=== PATIENT | male | born 1960 | race Caucasian/White ===

== ENCOUNTER 2019-07-22 05:58 | Inpatient (IN) | payer MEDICARE ==
[~2019-07-22] VITALS: Ht 170.2 cm; Wt 131.0 kg
--- NOTE | 2019-07-22 06:34 | NUR ---
PCU DIRECT ADMIT PT ARRIVED TO PCU RM 09 @ 0099. PT REPORTED BEING NPO SINCE 1700 YESTERDAY AND C/O FEELING "JITTERY". PT CBG SPOT CHECKED W/ CBG OF 65. CALL TO MD APPIAH W/ JAIMEAY TO GIVE PT SMALL AMOUNT OF APPLE JUICE THEN BEGIN D5 1/2 NS GTT. PT TO THEN RESUME NPO STATUS FOR PROCEDURE. WILL CONTINUE TO MONITOR.
--- NOTE | 2019-07-22 07:09 | NUR ---
HC STAFF IN ROOM TO TAKE PT AT THIS TIME.
[2019-07-22] MEDS ORDERED: METO10 PO (10:02)
[2019-07-22] MEDS ORDERED: ONDA4 PO (10:03)
[2019-07-22] MEDS ORDERED: OXYC5 PO (10:03)
[2019-07-22] MEDS ORDERED: Fentanyl1 EACH TOP (10:04)
[2019-07-22] MEDS ORDERED: BIKTARVY 50-201 EACH PO (10:06)
[2019-07-22] MEDS ORDERED: OMEPRAZOLE20 MG PO (10:07)
[2019-07-22] MEDS ORDERED: VITAMIN D32000 UNI2 PO (10:08)
[2019-07-22] MEDS ORDERED: LISI20 PO (10:10)
[2019-07-22] MEDS ORDERED: PRAV20 PO (10:10)
[2019-07-22] MEDS ORDERED: INSULANPEN SC (10:11)
[2019-07-22] MEDS ORDERED: Humalog100 UNIT/1 SC (10:12)
[2019-07-22] MEDS ORDERED: SUMA25 PO (10:13)
[2019-07-22] MEDS ORDERED: CREON PO (10:15)
--- NOTE | 2019-07-22 11:26 | NUR ---
The pt was received from the heart [facility] just before 0900. He was lethargic, difficult to arouse, and hypotensive. Pupils were pinpoint, but reactive to light bilaterally. Dr. Garcia was called to report the pt's symptoms and new orders were received for a IV fluid bolus of 500cc. This was initiated, and the pt's blood pressure did improve, but only slightly. Currently his blood pressure is 89 systolic. The pt very quickly became arousable, answering questions appropriately, and verbal and non-verbal evidence of severe pain, for which he was given 25 mg of fentanyl, with relief only after 45 minutes to an hour. Biliary drain is in place, I am told sutured, and was draining red fluid, now also draining some clear yellowish fluid, in small amounts. NO swelling, hematoma, nor bleeding from other locations noted. At this time the pt appears to be sleeping. He is responsive to verbal stimuli, appropriate, and states that he is still having pain. Three attempts have been made in the past [address] Garcia as the admission orders are incomplete. Message was left on his cell phone, and overhead page was also made. I am told that he is in surgery.
--- NOTE | 2019-07-22 12:11 | NUR ---
Attempted to call Dr. Garcia regarding persistent hypotension, even following the IV bolus of 500 cc NS. The pt awakens easily to verbal stimuli, states tht he is in a lot of pain, that it hurts to breathe. Respirations are even and unlabored, and the pt is now lying down with HOB only slightly elevated, following 3 hours with HOB elevated greater than 45 degrees per written orders. spo2 is 98% on 1 l/min oxygen delivery. PT denies using oxygen at home. Blood pressure is currently [address] Garcia did not answer his phone. Message was left.
[2019-07-22] MEDS ORDERED: CREON DR 24,001 EACH PO (13:32)
--- NOTE | 2019-07-22 14:13 | NUR ---
Dr. Garcia here to see the patient. Blood pressure remains low, but the pt is asymptomatic while he is lying in bed. The pt feels well enough to eat lunch, so he is sitting up eating at this time. Verbal orders were received for his regular home medications. The pt was medicated for post op pain.
--- NOTE | 2019-07-22 15:36 | NUR ---
The pt appears to be resting comfortably. Eyes closed, respirations even and unlabored. Awakens easily to gentle verbal/tactile stimuli. Biliary drain draining yellow thick liquid, approx 450 cc so far total since arrival post procedure. Blood pressure remains low, fever has decreased since room was cooled and extra blankets were removed.
--- NOTE | 2019-07-22 17:45 | NUR ---
The pt is cheerful, talking and laughing with a female visitor at the bedside. Thept is sitting up in bed, eating dinner with a good appetite. Blood pressure remains between 85 and 90 systolic; the pt denies any symptoms of lightheadedness or dizzyness. Biliary drain is draining additional 300cc of yellow thick liquid.
--- NOTE | 2019-07-22 21:45 | NUR ---
PCU NIGHTSHIFT ASSUMED CARE OF PT APPROX. 1900. PT A&OX4. ASSESSMENT COMPLETED. VITAL SIGNS STABLE. PT REPORTS PAIN IS INCREASING AND REPORTS THIS TO BE CHRONIC JOINT PAIN. PRN MEDICATION GIVEN PER EMAR. PT HAS DRAIN IN PLACE AND SECRUED AT LEFT UPPER QUADRANT. DRAIN PATENT AND DRAINING. PT ABLE TO AMUBALTE TO BATHROOM TO URINATE AT START OF SHIFT. URINE WAS DARK IN COLOR BUT CLEAR. SKIN OVERALL JAUNDICE. PT BLODD PRESSURE IMPROVED FROM PREVIOUS BLOOD PRESSURES NOTED IN VITAL SIGNS. PT IN BED. DRAIN HANING TO ALLOW GRAVITY TO ASSIST WITH DRAINING. BED IN LOW POSITION, CALL LIGHT IN REACH AND PT DENIES ANY NEEDS. WILL CONTINUE TO MONIOR.
--- NOTE | 2019-07-23 05:55 | NUR ---
SHIFT SUMMARY PT PLEASANT, COOPERATIVE AND USES CALL LIGHT APPROPRIATELY. PT REMAINS A&OX4. ASSESSMENT FINDINGS REMAIN UNCHANGED, ALTHOUGH PT SLIGHTLY LESS JAUNDICED THAN START OF SHIFT. PT ABLE TO SLEEP MOST OF SHIFT. PT ABLE TO AMBUALTE TO BATHROOM AND URINATE NEEDED. PRN PAIN MEDICATION GIVEN PER EMAR NEEDED. DRAIN REMAISN IN PLACE, PATENT AND DRAINING. PT AWAKE AT THIS TIME. STATES FEELING GOOD. BED IN LOW POSITION, CALL LIGHT IN REACH AND PT DENIES ANY NEEDS. WILL CONTINUE TO MONITOR UNTIL HANDOFF TO DAYSHIFT RN.
--- NOTE | 2019-07-23 07:52 | NUR ---
The pt is sitting up in bed, cheerful, talking with his sister while eating breakfast. States his pain is tolerable and that he feels a lot better.
--- NOTE | 2019-07-23 09:13 | NUR ---
Call from Dr. Garcia to say that he is unable to discharge the pt himself without access to PK as he is in [place] at a conference. Each home medication was reviewed with the doctor, and orders received to continue all the home medications, except for Lisinopril, due to the pt's hypotension. Telephone discharge orders and instructions for follow up were received from Dr. Garcia. The pt's drain is currently draining yellow thick fluid, from the bag only. Insertion site shows no swelling, no redness, no drainage. The dressing is clean, dry and intact. The pt this morning is afebrile, and not as hypotensive as yesterday. He denies any needs at this time. States that he would like to go home.
--- NOTE | 2019-07-23 11:51 | NUR ---
Pt. is in bed resting reports doing well and may go home today , offered prayers and support.
== END 2019-07-23 12:02 | disposition home or self-care (01) | DRG 435 ==
LOC: MHTC 05:58 → PCU 06:05
PROVIDERS: ADMIT Radiology Diagnostic Radiology
PROC: 0F9930Z Drainage of Common Bile Duct with Drainage Device, Percutaneous Approach (ICD-10-PCS; principal; 2019-07-22)
PROC: BF101ZZ Fluoroscopy of Bile Ducts using Low Osmolar Contrast (ICD-10-PCS; 2019-07-22)
DX: C25.9 Malignant neoplasm of pancreas, unspecified (principal); K83.1 Obstruction of bile duct; C77.2 Secondary and unspecified malignant neoplasm of intra-abdominal lymph nodes; C78.7 Secondary malignant neoplasm of liver and intrahepatic bile duct; B20 Human immunodeficiency virus [HIV] disease; E10.9 Type 1 diabetes mellitus without complications; Z96.643 Presence of artificial hip joint, bilateral; F17.210 Nicotine dependence, cigarettes, uncomplicated; Z79.891 Long term (current) use of opiate analgesic
CPT/HCPCS: 36415; 47540; 80048; 82947; 85025; 85610; 99152; 99153; C1729; C1769; C1887; J0690; J1200; J1815; J2250; J3010; J7030; J7040; J7042; Q9967

== ENCOUNTER 2019-08-02 18:37 | Inpatient (IN) | payer MEDICARE, OTHER ==
[~2019-08-02] VITALS: Ht 170.2 cm; Wt 51.3 kg
[~2019-08-02 18:37] MED LIST: BIKTARVY 50-201 EACH PO; CREON DR 24,001 EACH PO; CREON PO; Fentanyl1 EACH TOP; Humalog100 UNIT/1 SC; INSULANPEN SC; LISI20 PO; METO10 PO; OMEPRAZOLE20 MG PO; ONDA4 PO; OXYC5 PO; PRAV20 PO; SUMA25 PO; VITAMIN D32000 UNI2 PO
[2019-08-02 19:33] LABS: BASOPHILS ABSOLUTE AUTO 0.01 K/mm3 (0.00-0.23); BASOPHILS PERCENT AUTO 0 % (0-2); EOSINOPHILS PERCENT AUTO 0 % (0-6); Hematocrit 31.1 % (37.0-53.0); Hemoglobin 10.6 g/dL (13.5-17.5); Mean Corpuscular HGB 35.6 pg (26.0-34.0); Mean Corpuscular HGB Conc 34.1 g/dL (31.5-36.5); Mean Corpuscular Volume 104 fL (80-100); Mean Platelet Volume 11.7 fL (9.1-12.4); Platelet Count 187 K/mm3 (150-400); RDW Coefficient Variation 15.9 % (11.7-14.2); RDW Standard Deviation 60.8 fL (35.1-46.3); Red Blood Cell Count 2.98 M/mm3 (4.30-5.90); White Blood Cell Count 8.45 K/mm3 (4.00-11.30)
[2019-08-02 19:35] LABS: IMMATURE GRAN ABSOLUTE AUTO 0.07 K/mm3 (0.00-0.10); IMMATURE GRAN PERCENT AUTO 1 % (0-1); LYMPHOCYTES ABSOLUTE AUTO 0.14 K/mm3 (0.84-5.20); LYMPHOCYTES PERCENT AUTO 2 % (21-46); MONOCYTES ABSOLUTE AUTO 0.07 K/mm3 (0.16-1.47); MONOCYTES PERCENT AUTO 1 % (4-13); NEUTROPHILS ABSOLUTE AUTO 8.16 K/mm3 (1.96-9.15); NEUTROPHILS PERCENT AUTO 97 % (41-73)
[2019-08-02 19:46] LABS: International Normalized Ratio 1.14; Prothrombin Time Results 11.9 Sec (9.7-11.5)
[2019-08-02 19:53] LABS: Alanine Aminotransfer (ALT/SGP 71 U/L (12-78); Albumin, Blood 2.1 g/dL (3.4-5.0); Albumin/Globulin Ratio 0.5 (0.8-1.8); Alk Phos 505 U/L (50-136); Anion Gap 8 mmol/L (6-16); Aspartate Aminotrans (AST/SGOT 48 U/L (12-37); Bilirubin, Total 9.2 mg/dL (0.1-1.0); Blood Urea Nitrogen 40 mg/dL (8-24); Bun/Creatinine Ratio 33.6 (12.0-20.0); CO2, Blood 25 mmol/L (21-32); Calcium, Blood 8.6 mg/dL (8.5-10.1); Chloride, Blood 88 mmol/L (98-108); Creatinine, Blood 1.19 mg/dL (0.60-1.20); Globulin, Blood 4.1 g/dL (2.2-4.0); Glomerular Filtration Rate >60 (60-); Glucose, Blood 424 mg/dL (70-99); Potassium, Blood 4.9 mmol/L (3.5-5.5); Sodium, Blood 121 mmol/L (136-145); Total Protein, Blood 6.2 g/dL (6.4-8.2)
[2019-08-02 21:03] LABS: Source, Urine Catheter
[2019-08-02 21:06] LABS: Blood, Urine 1+ (Neg); Glucose Qualitative, Urine 4+ (Neg); Ketones, Urine 1+ (Neg); Leukocyte Esterase, Urine 1+ (Neg); Nitrite, Urine Pos (Neg); Protein, Urine 2+ (Neg); Urobilinogen, Urine 2+ (Normal)
[2019-08-02 21:07] LABS: Bilirubin, Urine 2+ (Neg)
[2019-08-02 21:13] LABS: Appearance, Urine Hazy (Clear); Color, Urine Amber (P-Yellow)
[2019-08-02 21:16] LABS: Bacteria Mod /hpf; Granular Casts Rare /lpf (0); Red Blood Cells, Urine Rare /hpf (0-2); Squamous Epithelial Cells Few /hpf (Few); White Blood Cells, Urine 0-2 /hpf (0-5)
[2019-08-02 21:17] LABS: Mucus Light (0-Heavy)
[2019-08-03 00:50] LABS: Source, Urine Clean Catch
[2019-08-03 00:52] LABS: Appearance, Urine Clear (Clear); Blood, Urine 1+ (Neg); Color, Urine Amber (P-Yellow); Glucose Qualitative, Urine 2+ (Neg); Ketones, Urine Neg (Neg); Leukocyte Esterase, Urine 1+ (Neg); Nitrite, Urine Neg (Neg); Protein, Urine 2+ (Neg); Urobilinogen, Urine 1+ (Normal); pH, Urine 6.5 (5.0-8.0)
--- NOTE | 2019-08-03 00:52 | NUR ---
PATIENT IS A NEW ADMIT FROM THE ED. THREE PERSON TRANSFER FROM [facility] TO BED. AXOX 3. PATIENT REPORTS HE IS BEDREST AT THIS TIME AND USES CANE AT HOME. PATIENT ORIENTED TO ROOM AND CALL LIGHT SYSTEM. ALBULMIN INFUSING ON ADMIT. PATIENT REPORTS MEDIPORT RU CHEST AND GLUCOSE READING DEVICE IN LEFT TRICEP. PATIENT MANAGES LIVER DRAINING DEVICE. CALL LIGHT IN REACH.
--- NOTE | 2019-08-03 00:55 | NUR ---
STARTED NS AND INFUSING X 1.5 LITERS. IV ABXS INFUSING. CBG 185 AND LANTUS GIVEN PER EMAR. URINE SAMPLE AND RESPIRATORY SAMPLE COLLECTED AND SENT TO LAB. PATIENT COOPERATIVE WITH CARE. CALL LIGHT IN REACH.
[2019-08-03 00:58] LABS: Bacteria Few /hpf; Bilirubin, Urine 2+ (Neg); Red Blood Cells, Urine 0-2 /hpf (0-2); Squamous Epithelial Cells Not Seen /hpf (Few); White Blood Cells, Urine 0-2 /hpf (0-5)
[2019-08-03 02:02] LABS: Adenovirus Not Detected (NOT DETECT); Bordetella pertussis Not Detected (NOT DETECT); Chlamydophila pneumoniae Not Detected (NOT DETECT); Coronavirus 229E Not Detected (NOT DETECT); Coronavirus HKU1 Not Detected (NOT DETECT); Coronavirus NL63 Not Detected (NOT DETECT); Coronavirus OC43 Not Detected (NOT DETECT); Human Metapneumovirus Not Detected (NOT DETECT); Human Rhinovirus/Enterovirus Not Detected (NOT DETECT); Influenza A Not Detected (NOT DETECT); Influenza A/2009-H1 Not Detected (NOT DETECT); Influenza A/H1 Not Detected (NOT DETECT); Influenza A/H3 Not Detected (NOT DETECT); Influenza B Not Detected (NOT DETECT); Mycoplasma pneumoniae Not Detected (NOT DETECT); Parainfluenza Virus 1 Not Detected (NOT DETECT); Parainfluenza Virus 2 Not Detected (NOT DETECT); Parainfluenza Virus 3 Not Detected (NOT DETECT); Parainfluenza Virus 4 Not Detected (NOT DETECT); Respiratory Syncytial Virus Not Detected (NOT DETECT)
--- NOTE | 2019-08-03 03:39 | NUR ---
SHIFT SUMMARY PATIENT HAD NO ACUTE CHANGES OBSERVED THIS SHIFT. NEUTROPENIC PRECAUTIONS. HX OF PANCREATIC, PROSTATE, AND LIVER CANCER. AXOX 3 AND BEDREST AT THIS TIME PER PATIENT WITH INCREASED WEAKNESS LAST FEW DAYS. MEDIPORT RU CHEST. GLUCOSE READING DEVICE IN LEFT TRICEP. SELF MANAGES BILIARY DRAIN COLLECTION BAG. CBG 183. PIV REMAINS INTACT. NS INFUSING X 1.5 LITERS. IV ABS INFUSED. VSS/AFEBRILE. REPORTED ABDOMEN/BACK PAIN AND IV FENTANYL 50 MCG GIVEN PER EMAR. DENIES SOB AND N/V. LACTIC ACID REDUCED FROM 3.4 TO 2.5. URINE SAMPLE AND RESPIRATORY PANEL COLLECTED AND SENT TO LAB. [facility] REPORTS NSR 82. CALL LIGHT IN REACH. BED IN LOWEST POSITION. WILL CONTINUE TO MONITOR UNTIL DAY SHIFT NURSE ASSUMES CARE.
[2019-08-03 04:43] LABS: Hematocrit 25.9 % (37.0-53.0); Hemoglobin 8.8 g/dL (13.5-17.5); Mean Corpuscular HGB 35.8 pg (26.0-34.0); Mean Corpuscular Volume 105 fL (80-100); Platelet Count 154 K/mm3 (150-400); RDW Coefficient Variation 15.9 % (11.7-14.2); RDW Standard Deviation 61.6 fL (35.1-46.3); Red Blood Cell Count 2.46 M/mm3 (4.30-5.90); White Blood Cell Count 7.35 K/mm3 (4.00-11.30)
[2019-08-03 05:11] LABS: Alanine Aminotransfer (ALT/SGP 55 U/L (12-78); Albumin, Blood 2.1 g/dL (3.4-5.0); Albumin/Globulin Ratio 0.6 (0.8-1.8); Alk Phos 390 U/L (50-136); Anion Gap 9 mmol/L (6-16); Aspartate Aminotrans (AST/SGOT 34 U/L (12-37); Bilirubin, Total 7.8 mg/dL (0.1-1.0); Blood Urea Nitrogen 33 mg/dL (8-24); Bun/Creatinine Ratio 35.8 (12.0-20.0); CO2, Blood 22 mmol/L (21-32); Calcium, Blood 8.1 mg/dL (8.5-10.1); Chloride, Blood 92 mmol/L (98-108); Creatinine, Blood 0.92 mg/dL (0.60-1.20); Globulin, Blood 3.6 g/dL (2.2-4.0); Glomerular Filtration Rate >60 (60-); Glucose, Blood 211 mg/dL (70-99); Potassium, Blood 5.1 mmol/L (3.5-5.5); Sodium, Blood 123 mmol/L (136-145); Total Protein, Blood 5.7 g/dL (6.4-8.2)
--- NOTE | 2019-08-03 11:01 | NUR ---
called dr lucas he is aware of the possitive blood culture results
--- NOTE | 2019-08-03 19:46 | NUR ---
SHIFT SUMLUBBOCK- PT HAS BEEN AMBULATING TO THE BATHROOM T/O THE SHIFT. STILL RECIEVING IV FENTANYL FOR BREAKTHROUGH PAIN. PT HAS POSSITIVE BLOOD CULTURES, DR IRVIN IS AWARE, ABX THERAPY CHANGED TODAY D/T THESE RESULTS. PT ALERT AND ORIENTED 1PA TO THE BATHROOM WHEN NEEDED, PT CAN USE THE URINAL AT THE BEDSIDE. CALL LIGHT IN REACH BEDSIDE REPORT COMPLETE. PT HOME MED CODDED FOR ADMINISTRATION BY PHARMACY LOCKED IN THE PT DRAWER. PT STATED HE TAKES THE MED AT NIGHT IT UPSETS HIS STOMACH. ADMIN TIME SCHEDULED FOR EVENING.
--- NOTE | 2019-08-04 03:27 | NUR ---
SHIFT SUMMARY PATIENT HAD NO ACUTE CHANGES OBSERVED. AXOX 3 AND ONE ASSIST TO BR. REPORTED BACK/ABDOMEN PAIN AND RECEIVED IV FENTANYL 50 MCG PER EMAR. PIV REMAINS INTACT. TOURIST GUIDE REPORTS NSR 80. NS INFUSING AT 100 mL/HR. USES URINAL AT BEDSIDE. BILIARY DRAIN COLLECTION BAG SELF CARE. CBG 145. VSS/AFEBRILE. IV ABXS INFUSED. MEDIPORT RU CHEST. CALL LIGHT IN REACH. BED IN LOWEST POSITION. WILL CONTINUE TO MONITOR UNTIL DAY SHIFT NURSE ASSUMES CARE.
--- NOTE | 2019-08-04 07:45 | NUR ---
BORROWED DROP OF BLOOD FROM AUTOMOBILE BUMPER STRAIGHTENER WHO HAPPENED TO BE DRAWING PATIENT'S BLOOD AT THE SAME TIME. USED DROP OF VENOUS BLOOD FOR CHEM BG AND IT WAS. GAVE PATIENT MEDIUM CUP OF OJ AND INFORMED RN. PATIENT STATED FEELING A LITTLE DIZZY BUT WAS OTHERWISE WITHOUT S/SX. PATIENT DRINKING OJ WITHOUT ISSUE.
[2019-08-04 07:47] LABS: Hematocrit 23.5 % (37.0-53.0); Hemoglobin 8.2 g/dL (13.5-17.5); Mean Corpuscular HGB 36.1 pg (26.0-34.0); Mean Corpuscular HGB Conc 34.9 g/dL (31.5-36.5); Mean Corpuscular Volume 104 fL (80-100); Mean Platelet Volume 12.3 fL (9.1-12.4); Platelet Count 110 K/mm3 (150-400); RDW Coefficient Variation 16.1 % (11.7-14.2); RDW Standard Deviation 60.4 fL (35.1-46.3); Red Blood Cell Count 2.27 M/mm3 (4.30-5.90); White Blood Cell Count 3.04 K/mm3 (4.00-11.30)
[2019-08-04 08:12] LABS: BASOPHILS PERCENT MAN 0 % (0-2); EOSINOPHILS PERCENT MAN 0 % (0-6); LYMPHOCYTES ABSOLUTE MAN 0.42 K/mm3 (0.84-5.20); LYMPHOCYTES PERCENT MAN 14 % (21-46); MONOCYTES ABSOLUTE MAN 0.09 K/mm3 (0.16-1.47); MONOCYTES PERCENT MAN 3 % (4-13); MYELOCYTE ABSOLUTE MAN 0.03 K/mm3 (0.00-0.00); MYELOCYTE PERCENT MAN 1 % (0-0); NEUTROPHILS ABSOLUTE MAN 2.49 K/mm3 (1.96-9.15); SEG NEUTROPHILS PERCENT MAN 82 % (41-73); TOTAL CELLS COUNTED 100
[2019-08-04 08:39] LABS: Alanine Aminotransfer (ALT/SGP 46 U/L (12-78); Albumin/Globulin Ratio 0.6 (0.8-1.8); Alk Phos 345 U/L (50-136); Anion Gap 6 mmol/L (6-16); Aspartate Aminotrans (AST/SGOT 42 U/L (12-37); Bilirubin, Total 6.2 mg/dL (0.1-1.0); Blood Urea Nitrogen 20 mg/dL (8-24); Bun/Creatinine Ratio 22.8 (12.0-20.0); CO2, Blood 26 mmol/L (21-32); Calcium, Blood 7.7 mg/dL (8.5-10.1); Chloride, Blood 96 mmol/L (98-108); Creatinine, Blood 0.88 mg/dL (0.60-1.20); Globulin, Blood 3.5 g/dL (2.2-4.0); Glomerular Filtration Rate >60 (60-); Potassium, Blood 4.2 mmol/L (3.5-5.5); Sodium, Blood 128 mmol/L (136-145); Total Protein, Blood 5.5 g/dL (6.4-8.2)
[2019-08-04 08:41] LABS: Glucose, Blood 49 mg/dL (70-99)
--- NOTE | 2019-08-04 19:12 | NUR ---
SHIFT SUMAMRY: NO ACUTE CHANGES TO REPORT THIS SHIFT. PT A&O; CALM AND COOPERATIVE WITH CARE. DR BARRERA (ONCOLOGY) FOLLOWING R/T CA OF PROSTATE, LIVER & PANCREAS. MEDICATED FOR PAIN PER EMAR; FENTANYL TOP IN PLACE. TELE IN PLACE; NSR @ 79 PER FORMS EXAMINER DURING MORNING ASSESSMENT. IV FLUIDS & ABX CONTINUING. REPORT GIVEN TO ONCOMING RN.
--- NOTE | 2019-08-05 05:09 | NUR ---
SHIFT SUMMARY: LETTY IS A 58 Y/O MALE, INDEPENDENT TO THE BSC, USE OF URINAL. BILARY DRAIN REMAINED INTAKE AND DRAINING. TELE REPORTS NSR RUNNING 70-80'S. REPORTED ABDOMINAL AND BACK PAIN, WHO RECEIVED FENTANYL 50MCQ PER EMAR EVERY 4 HOURS PER HIS REQUEST. THIS WOULD RELEIVE HIS PAIN TO TOLERABLE LEVEL OF 6/10. CBG WAS 77, NO LANTUS WAS GIVEN. VSS STABLE. IV INFUSING WITH NO PROBLEMS, MEDS ADMINSITERED PER EMAR. CALL LIGHT REMAINED WITH IN REACH, AND USED APPROPRIATLY. NO OTHER ACUTE CHANGES OCCURED. WILL REPORT TO DAY SHIFT RN.
[2019-08-05 12:55] LABS: Hematocrit 22.4 % (37.0-53.0); Hemoglobin 7.7 g/dL (13.5-17.5); Mean Corpuscular HGB 36.2 pg (26.0-34.0); Mean Corpuscular HGB Conc 34.4 g/dL (31.5-36.5); Mean Corpuscular Volume 105 fL (80-100); Mean Platelet Volume 12.8 fL (9.1-12.4); Platelet Count 138 K/mm3 (150-400); RDW Coefficient Variation 16.2 % (11.7-14.2); RDW Standard Deviation 61.8 fL (35.1-46.3); Red Blood Cell Count 2.13 M/mm3 (4.30-5.90); White Blood Cell Count 3.95 K/mm3 (4.00-11.30)
[2019-08-05 13:10] LABS: Alanine Aminotransfer (ALT/SGP 30 U/L (12-78); Albumin, Blood 1.7 g/dL (3.4-5.0); Albumin/Globulin Ratio 0.6 (0.8-1.8); Alk Phos 280 U/L (50-136); Anion Gap 6 mmol/L (6-16); Aspartate Aminotrans (AST/SGOT 23 U/L (12-37); Bilirubin, Total 5.4 mg/dL (0.1-1.0); Blood Urea Nitrogen 10 mg/dL (8-24); Bun/Creatinine Ratio 13.4 (12.0-20.0); CO2, Blood 23 mmol/L (21-32); Calcium, Blood 7.6 mg/dL (8.5-10.1); Chloride, Blood 99 mmol/L (98-108); Creatinine, Blood 0.75 mg/dL (0.60-1.20); Glomerular Filtration Rate >60 (60-); Glucose, Blood 218 mg/dL (70-99); Potassium, Blood 3.9 mmol/L (3.5-5.5); Sodium, Blood 128 mmol/L (136-145); Total Protein, Blood 4.7 g/dL (6.4-8.2); Vancomycin, Trough 3.1 ug/mL (5.0-10.0)
[2019-08-05 13:26] LABS: BAND PERCENT MAN 5 % (0-8); BASOPHILS ABSOLUTE MAN 0.03 K/mm3 (0.00-0.23); BASOPHILS PERCENT MAN 1 % (0-2); EOSINOPHILS PERCENT MAN 0 % (0-6); LYMPHOCYTES ABSOLUTE MAN 0.39 K/mm3 (0.84-5.20); LYMPHOCYTES PERCENT MAN 10 % (21-46); MONOCYTES ABSOLUTE MAN 0.11 K/mm3 (0.16-1.47); MONOCYTES PERCENT MAN 3 % (4-13); NEUTROPHILS ABSOLUTE MAN 3.39 K/mm3 (1.96-9.15); SEG NEUTROPHILS PERCENT MAN 81 % (41-73); TOTAL CELLS COUNTED 100
--- NOTE | 2019-08-05 19:15 | NUR ---
PT. FEELING MUCH BETTER THIS AFTEEERNOON AND WAS ABLE TO EAT MORE OF HIS DINNER. NO OTHER NOTEABLE CHANGES THIS SHIFT. PT. GETTING NEW ANTIBIOTICS AND PO PAIN MEDS ADDED WHICH SEEMS TO COVER HIA PAIN BETTER.
[2019-08-06 05:03] LABS: BASOPHILS ABSOLUTE AUTO 0.02 K/mm3 (0.00-0.23); BASOPHILS PERCENT AUTO 1 % (0-2); Hematocrit 23.9 % (37.0-53.0); Hemoglobin 8.1 g/dL (13.5-17.5); LYMPHOCYTES ABSOLUTE AUTO 0.23 K/mm3 (0.84-5.20); LYMPHOCYTES PERCENT AUTO 7 % (21-46); MONOCYTES ABSOLUTE AUTO 0.12 K/mm3 (0.16-1.47); MONOCYTES PERCENT AUTO 4 % (4-13); Mean Corpuscular HGB 35.5 pg (26.0-34.0); Mean Corpuscular HGB Conc 33.9 g/dL (31.5-36.5); Mean Corpuscular Volume 105 fL (80-100); Mean Platelet Volume 12.6 fL (9.1-12.4); Platelet Count 151 K/mm3 (150-400); RDW Coefficient Variation 16.4 % (11.7-14.2); RDW Standard Deviation 62.7 fL (35.1-46.3); Red Blood Cell Count 2.28 M/mm3 (4.30-5.90); White Blood Cell Count 3.22 K/mm3 (4.00-11.30)
[2019-08-06 05:06] LABS: EOSINOPHILS ABSOLUTE AUTO 0.02 K/mm3 (0.00-0.68); EOSINOPHILS PERCENT AUTO 1 % (0-6); IMMATURE GRAN ABSOLUTE AUTO 0.03 K/mm3 (0.00-0.10); IMMATURE GRAN PERCENT AUTO 1 % (0-1); NEUTROPHILS PERCENT AUTO 87 % (41-73)
[2019-08-06 05:24] LABS: Alanine Aminotransfer (ALT/SGP 29 U/L (12-78); Albumin, Blood 1.6 g/dL (3.4-5.0); Albumin/Globulin Ratio 0.5 (0.8-1.8); Alk Phos 318 U/L (50-136); Anion Gap 6 mmol/L (6-16); Aspartate Aminotrans (AST/SGOT 35 U/L (12-37); Blood Urea Nitrogen 8 mg/dL (8-24); Bun/Creatinine Ratio 10.3 (12.0-20.0); CO2, Blood 25 mmol/L (21-32); Calcium, Blood 7.6 mg/dL (8.5-10.1); Chloride, Blood 102 mmol/L (98-108); Creatinine, Blood 0.78 mg/dL (0.60-1.20); Globulin, Blood 3.2 g/dL (2.2-4.0); Glomerular Filtration Rate >60 (60-); Glucose, Blood 99 mg/dL (70-99); Potassium, Blood 4.3 mmol/L (3.5-5.5); Sodium, Blood 133 mmol/L (136-145); Total Protein, Blood 4.8 g/dL (6.4-8.2)
--- NOTE | 2019-08-06 05:54 | NUR ---
SHIFT SUMMARY: 58 Y/O MALE WHO IS INDEPENDENT TO THE BSC AND URINAL. BILARY DRAIN REMAINED INTAKE AND PATENT. TELEMETRY IN PLACE. ABDOMINAL AND BACK PAIN PERSISTED TONIGHT, RECEIVING FENTANYL 50MCQ PER EMAR AND OXYCODONE 10MG WELL. THIS HAS RELEIVED HIS PAIN DOWN TO 5 THE MOST BUT STATES HE IS MORE COMFORTABLE THEN HE HAS BEEN. VS HAVE REMAINED STABLE. IV INFUSED WITH NO PROBLEMS. MEDS WERE GIVEN PER EMAR. CALL LIGHT REMAINED IN REACH AND USED APPROPRIATLY. N OTHER ACUTE CHANGES OCCURED. WILL REPORT TO DAY SHIFT RN.
--- NOTE | 2019-08-06 18:00 | NUR ---
PT. LYING QUIETLY WATCHING TV. PT. TEMP UP TO 100.7 TODAY AND BLOOD SUGAR AT 1100 WAS AT 41, JUICE AND PUDDING GIVE THEN BLOOD SUGAR INCREASED TO 70. NO OTHER NOTEABLE CHANGES THIS SHIFT EXCEPT FOR URINE CULTURED OUT AT [facility], SO PT. PLACED IN ISOLATION.
[2019-08-07 06:15] LABS: Hematocrit 21.7 % (37.0-53.0); Hemoglobin 7.3 g/dL (13.5-17.5); Mean Corpuscular HGB 34.8 pg (26.0-34.0); Mean Corpuscular HGB Conc 33.6 g/dL (31.5-36.5); Mean Corpuscular Volume 103 fL (80-100); Mean Platelet Volume 11.7 fL (9.1-12.4); NRBC ABSOLUTE 0.02 K/mm3 (0.00-0.02); NRBC Auto 1.7 /100 WBC (0.0-0.2); Platelet Count 177 K/mm3 (150-400); RDW Coefficient Variation 15.9 % (11.7-14.2); RDW Standard Deviation 60.3 fL (35.1-46.3)
[2019-08-07 06:40] LABS: Alanine Aminotransfer (ALT/SGP 26 U/L (12-78); Albumin, Blood 1.6 g/dL (3.4-5.0); Albumin/Globulin Ratio 0.5 (0.8-1.8); Alk Phos 283 U/L (50-136); Anion Gap 8 mmol/L (6-16); Aspartate Aminotrans (AST/SGOT 21 U/L (12-37); Bilirubin, Total 4.2 mg/dL (0.1-1.0); Blood Urea Nitrogen 7 mg/dL (8-24); Bun/Creatinine Ratio 10.2 (12.0-20.0); CO2, Blood 24 mmol/L (21-32); Calcium, Blood 7.5 mg/dL (8.5-10.1); Chloride, Blood 103 mmol/L (98-108); Creatinine, Blood 0.69 mg/dL (0.60-1.20); Globulin, Blood 3.1 g/dL (2.2-4.0); Glomerular Filtration Rate >60 (60-); Glucose, Blood 60 mg/dL (70-99); Potassium, Blood 3.2 mmol/L (3.5-5.5); Sodium, Blood 135 mmol/L (136-145); Total Protein, Blood 4.7 g/dL (6.4-8.2)
[2019-08-07 06:41] LABS: BAND PERCENT MAN 6 % (0-8); BASOPHILS ABSOLUTE MAN 0.02 K/mm3 (0.00-0.23); BASOPHILS PERCENT MAN 2 % (0-2); EOSINOPHILS ABSOLUTE MAN 0.01 K/mm3 (0.00-0.68); EOSINOPHILS PERCENT MAN 1 % (0-6); LYMPHOCYTES ABSOLUTE MAN 0.32 K/mm3 (0.84-5.20); LYMPHOCYTES PERCENT MAN 27 % (21-46); MONOCYTES ABSOLUTE MAN 0.12 K/mm3 (0.16-1.47); MONOCYTES PERCENT MAN 10 % (4-13); MYELOCYTE ABSOLUTE MAN 0.01 K/mm3 (0.00-0.00); MYELOCYTE PERCENT MAN 1 % (0-0); SEG NEUTROPHILS PERCENT MAN 53 % (41-73); TOTAL CELLS COUNTED 100
--- NOTE | 2019-08-07 07:34 | NUR ---
SHIFT SUMMARY: 58 Y/O MALE PLEASANT AND COOPERATIVE. WHO SLEPT MOST OF THE NIGHT, EXCEPT WHEN HIS BLOOD SUGARS CONTINUE TO DROP. HE REPORTED TO HAVE DRY MOUTH AND BLOOD SUGAR CHECK WAS 47, THEREFORE GAVE HIM SOME OJ AND CHEESE, AND YOGURT, RECHECK WAS 68 AND COMING UP. PAIN WAS MANAGED WITH OXYCODONE AND FENTANYL. MEDIPORT WAS ACCESSED AFTER IV INFRITRATED IN THE RIGHT UPPER ARM. FLUIDS INFUSED WITH NO PROBLEMS MEDS WERE GIVEN PER EMAR. TEMP REMAINED IN THE 100.4. CALL LIGHT REMAINED IN REACH AND USED APPROPRIATLY. REPORT WAS GIVEN TO DAY SHIFT RN.
--- NOTE | 2019-08-07 13:35 | NUR ---
Pt .is in bed resting, reports doing well offered prayer and support.
--- NOTE | 2019-08-07 19:35 | NUR ---
PT. LYING QUIETLY, 2 UPRBC'S GIVEN TODAY, DR. MCKEON CAME TO SEE PT. LANTUS HAS BEEN DISCONTINUED R/T LOW BLOOD SUGARS, HAS NOT NEEDED INSULIN TODAY. STOOL SENT FOR C-DIFF PER DR. SMITH. PT. HAS BEEN RUNNING FEVERS TODAY IN THE 100'S AND 101'S. NO OTHER CHANGES THIS SHIFT.
[2019-08-08 05:07] LABS: BASOPHILS ABSOLUTE AUTO 0.01 K/mm3 (0.00-0.23); BASOPHILS PERCENT AUTO 1 % (0-2); Hematocrit 29.2 % (37.0-53.0); Hemoglobin 10.1 g/dL (13.5-17.5); Mean Corpuscular HGB 33.9 pg (26.0-34.0); Mean Corpuscular HGB Conc 34.6 g/dL (31.5-36.5); Mean Platelet Volume 11.8 fL (9.1-12.4); Platelet Count 191 K/mm3 (150-400); RDW Coefficient Variation 17.7 % (11.7-14.2); RDW Standard Deviation 63.8 fL (35.1-46.3); Red Blood Cell Count 2.98 M/mm3 (4.30-5.90); White Blood Cell Count 1.24 K/mm3 (4.00-11.30)
[2019-08-08 05:15] LABS: Alanine Aminotransfer (ALT/SGP 23 U/L (12-78); Albumin, Blood 1.6 g/dL (3.4-5.0); Albumin/Globulin Ratio 0.5 (0.8-1.8); Alk Phos 260 U/L (50-136); Anion Gap 8 mmol/L (6-16); Aspartate Aminotrans (AST/SGOT 23 U/L (12-37); Bilirubin, Total 5.8 mg/dL (0.1-1.0); Blood Urea Nitrogen 8 mg/dL (8-24); Bun/Creatinine Ratio 11.3 (12.0-20.0); CO2, Blood 24 mmol/L (21-32); Calcium, Blood 7.5 mg/dL (8.5-10.1); Chloride, Blood 101 mmol/L (98-108); Creatinine, Blood 0.71 mg/dL (0.60-1.20); Globulin, Blood 3.1 g/dL (2.2-4.0); Glomerular Filtration Rate >60 (60-); Glucose, Blood 327 mg/dL (70-99); Sodium, Blood 133 mmol/L (136-145); Total Protein, Blood 4.7 g/dL (6.4-8.2)
[2019-08-08 05:29] LABS: EOSINOPHILS ABSOLUTE AUTO 0.02 K/mm3 (0.00-0.68); EOSINOPHILS PERCENT AUTO 2 % (0-6); IMMATURE GRAN ABSOLUTE AUTO 0.01 K/mm3 (0.00-0.10); IMMATURE GRAN PERCENT AUTO 1 % (0-1); LYMPHOCYTES ABSOLUTE AUTO 0.27 K/mm3 (0.84-5.20); LYMPHOCYTES PERCENT AUTO 22 % (21-46); MONOCYTES ABSOLUTE AUTO 0.39 K/mm3 (0.16-1.47); MONOCYTES PERCENT AUTO 32 % (4-13); Mean Corpuscular Volume 98 fL (80-100); NEUTROPHILS ABSOLUTE AUTO 0.54 K/mm3 (1.96-9.15); NEUTROPHILS PERCENT AUTO 44 % (41-73)
--- NOTE | 2019-08-08 06:22 | NUR ---
READING INTERVENTION TEACHER SUMMARY PT AAOX4 AND INDEPENDENT TO BSC. TREATED FOR PAIN T/O NIGHT PER EMAR. PT BILIARY DRAIN NOTED TO HAVE HEAVY LEAKAGE AROUND DRESSING. SPOKE WITH DR APPIAH ON THE PHONE REGARDING LEAKING DRAIN. PER DR APPIAH, FLUSH DRAIN W/ 5 ML NS AND CHANGE DRESSING. ATTEMPTED TO FLUSH DRAIN, HOWEVER NS WOULD LEAK OUT OF EDGES OF DRESSING. DRESSING CHANGED AND REINFORCED, HOWEVER BILE STILL NOTED IN GAUZE BUT NOT LEAKING OUTSIDE OF DRESSING. VSS, WILL CONTINUE TO MONITOR.
--- NOTE | 2019-08-08 08:22 | NUR ---
MESSAGE LEFT WITH DR. NICHOLE MESSAGE LEFT WITH DR. NICHOLE TO CONTACT THIS RN ABOUT CLEARANCE FROM GI OR NOT. WILL CONTINUE TO MONITOR.
--- NOTE | 2019-08-08 18:19 | NUR ---
SHIFT SUMMARY SEE EMAR FOR PAIN MED ADMINISTRATION. PT BILIARY DRAIN CONTINUES TO SEEP FLUID. ORDER OBTAINED FROM DR. SHANNON TO CHANGE DRESSING QSHIFT PRN. PT REQUESTED TO WAIT TO CHANGE UNTIL AFTER DINNER. PT HAS SLIGHT TEMP THIS THIS AFTERNOON. PT TREATED WITH TYLENOL & EXTRA BLANKS REMOVED. NO OTHER CHANGES IN ASSESSMENT AT THIS TIME. VSS. WILL CONTINUE TO MONITOR UNTIL TURNOVER IS COMPLETE.
--- NOTE | 2019-08-08 18:23 | NUR ---
PT REFUSED BLADDER SCAN THIS SHIFT. WILL RELAY TO NEXT SHIFT TO OBTAIN.
[2019-08-09 05:11] LABS: Hematocrit 29.5 % (37.0-53.0); Hemoglobin 10.1 g/dL (13.5-17.5); Mean Corpuscular HGB 33.3 pg (26.0-34.0); Mean Corpuscular HGB Conc 34.2 g/dL (31.5-36.5); Mean Corpuscular Volume 97 fL (80-100); NRBC ABSOLUTE 0.02 K/mm3 (0.00-0.02); NRBC Auto 0.5 /100 WBC (0.0-0.2); Platelet Count 296 K/mm3 (150-400); RDW Coefficient Variation 17.2 % (11.7-14.2); Red Blood Cell Count 3.03 M/mm3 (4.30-5.90); White Blood Cell Count 3.65 K/mm3 (4.00-11.30)
[2019-08-09 05:41] LABS: Alanine Aminotransfer (ALT/SGP 28 U/L (12-78); Albumin, Blood 1.6 g/dL (3.4-5.0); Albumin/Globulin Ratio 0.6 (0.8-1.8); Alk Phos 254 U/L (50-136); Anion Gap 7 mmol/L (6-16); Aspartate Aminotrans (AST/SGOT 20 U/L (12-37); Bilirubin, Total 4.9 mg/dL (0.1-1.0); Blood Urea Nitrogen 9 mg/dL (8-24); Bun/Creatinine Ratio 10.9 (12.0-20.0); CO2, Blood 23 mmol/L (21-32); Calcium, Blood 7.7 mg/dL (8.5-10.1); Chloride, Blood 103 mmol/L (98-108); Creatinine, Blood 0.82 mg/dL (0.60-1.20); Globulin, Blood 2.9 g/dL (2.2-4.0); Glomerular Filtration Rate >60 (60-); Glucose, Blood 316 mg/dL (70-99); Sodium, Blood 133 mmol/L (136-145); Total Protein, Blood 4.5 g/dL (6.4-8.2)
[2019-08-09 06:18] LABS: BAND PERCENT MAN 29 % (0-8); BASOPHILS PERCENT MAN 0 % (0-2); EOSINOPHILS PERCENT MAN 0 % (0-6); LYMPHOCYTES ABSOLUTE MAN 0.14 K/mm3 (0.84-5.20); LYMPHOCYTES PERCENT MAN 4 % (21-46); MONOCYTES ABSOLUTE MAN 0.54 K/mm3 (0.16-1.47); MONOCYTES PERCENT MAN 15 % (4-13); MYELOCYTE ABSOLUTE MAN 0.03 K/mm3 (0.00-0.00); MYELOCYTE PERCENT MAN 1 % (0-0); NEUTROPHILS ABSOLUTE MAN 2.92 K/mm3 (1.96-9.15); SEG NEUTROPHILS PERCENT MAN 51 % (41-73); TOTAL CELLS COUNTED 100
--- NOTE | 2019-08-09 06:34 | NUR ---
SHIFT SUMMARY: PT IS ALERT AND ORIENTED. PT IS CALM AND COOPERATIVE WITH CARE. PT CALLS APPROPRIATELY. PT IS INDEPENDENT IN THE ROOM. PT'S BILIARY DRAIN LEAKING ALL NIGHT, DRESSING REINFORCED 3 TIMES, FLUID LEVEL IN THE BAG HAS NOT CHANGED. PT REPORTS PAIN ON SEVERAL OCCASIONS, MEDICATING PER EMAR. PT DENIES NAUSEA, VOMITING, AND SOB. PT SLEPT INTERMITTENTLY THROUGHOUT THE NIGHT. BED IN LOW POSITION, CALL LIGHT WITHIN REACH. WILL REPORT TO DAY NURSE.
--- NOTE | 2019-08-09 17:30 | NUR ---
SHIFT SUMMARY PATIENT ALERT AND ORIENTED X4, STANDBY ASSIST TO BATHROOM. PATIENT C/O R SIDE ABD PAIN, MEDICATED WITH PRN OXYCODONE, AND FENTANYL X1. PATIENT HAD MILD NAUSEA ALL DAY, ZOFRAN GIVEN X2. PATIENT HAVING MANY SMALL LOOSE WATERY STOOLS IN AFTERNOON, WALKING BACK AND FORTH TO TOILET. HR UP TO 120S, ONLY COMING DOWN TO ~115 AT REST. PT DENIES ANY NEW S/S. DR SHANNON NOTIFIED, 500 ML BOLUS ORDERED AND GIVEN. BILIARY DRAIN ON R MID ABD DRAINING COPIOUS AMOUNTS GREEN LIQUID WITH SOME VISCOSITY AROUND TUBE DRESSING. GAUZES AND TEGADERM PLACED AROUND AND SECURED. DRESSINGS CHANGED TWICE. WILL CONTINUE TO MONITOR.
--- NOTE | 2019-08-10 03:30 | NUR ---
SHIFT SUMMARY: PT IS ALERT AND ORIENTED. PT IS CALM AND COOPERATIVE WITH CARE. PT CALLS APPROPRIATELY. PT IS INDEPENDENT IN THE ROOM. PT'S PAIN IMPROVED THIS SHIFT THAN LAST, HAS REQUIRED ONLY ONE DOSE OF OXYCODONE. PT DENIES NAUSEA, VOMITING, AND SOB. BILIARY DRAIN CONTINUES TO LEAK SUBSTANTIALLY, DRESSING CHANGED NEEDED. FLUIDS RUNNING ORDERED. PT SLEPT INTERMITTENTLY THROUGHOUT THE NIGHT. WILL CONTINUE TO MONITOR.
[2019-08-10 04:58] LABS: Hematocrit 29.6 % (37.0-53.0); Hemoglobin 10.1 g/dL (13.5-17.5); Mean Corpuscular HGB 33.9 pg (26.0-34.0); Mean Corpuscular HGB Conc 34.1 g/dL (31.5-36.5); Mean Corpuscular Volume 99 fL (80-100); Mean Platelet Volume 11.2 fL (9.1-12.4); NRBC ABSOLUTE 0.03 K/mm3 (0.00-0.02); NRBC Auto 0.5 /100 WBC (0.0-0.2); Platelet Count 300 K/mm3 (150-400); RDW Coefficient Variation 16.8 % (11.7-14.2); RDW Standard Deviation 61.1 fL (35.1-46.3); Red Blood Cell Count 2.98 M/mm3 (4.30-5.90); White Blood Cell Count 6.37 K/mm3 (4.00-11.30)
[2019-08-10 05:17] LABS: Magnesium, Blood 1.9 mg/dL (1.6-2.4)
[2019-08-10 05:37] LABS: Albumin, Blood 1.5 g/dL (3.4-5.0); Anion Gap 6 mmol/L (6-16); Blood Urea Nitrogen 11 mg/dL (8-24); Bun/Creatinine Ratio 11.3 (12.0-20.0); CO2, Blood 22 mmol/L (21-32); Calcium, Blood 7.9 mg/dL (8.5-10.1); Chloride, Blood 107 mmol/L (98-108); Creatinine, Blood 0.98 mg/dL (0.60-1.20); Glomerular Filtration Rate >60 (60-); Glucose, Blood 49 mg/dL (70-99); Phosphorus, Blood 2.3 mg/dL (2.5-4.9); Potassium, Blood 3.4 mmol/L (3.5-5.5); Sodium, Blood 135 mmol/L (136-145)
[2019-08-10 05:44] LABS: BAND PERCENT MAN 13 % (0-8); BASOPHILS PERCENT MAN 0 % (0-2); EOSINOPHILS PERCENT MAN 0 % (0-6); LYMPHOCYTES ABSOLUTE MAN 0.31 K/mm3 (0.84-5.20); LYMPHOCYTES PERCENT MAN 5 % (21-46); MONOCYTES ABSOLUTE MAN 0.57 K/mm3 (0.16-1.47); MONOCYTES PERCENT MAN 9 % (4-13); NEUTROPHILS ABSOLUTE MAN 5.47 K/mm3 (1.96-9.15); SEG NEUTROPHILS PERCENT MAN 73 % (41-73); TOTAL CELLS COUNTED 100
--- NOTE | 2019-08-10 13:43 | NUR ---
BLOOD SUGAR PATIENT HAD LOW BLOOD SUGARS THIS MORNING. 0630 -CBG 53, NIGHT RN STATED THEY SAW IT WAS LOW WITH MORNING LABS AND RECHECKED IT. THEY STATED THEY GAVE THE PT JUICE AND SNACKS. 0800 -CBG 40, PATIENT STATES HE FEELS OKAY, JUST A LITTLE LIGHTHEADED BUT IS STRONG ENOUGH TO AMBULATE WITH STAFF TO BATHROOM. DR SHANNON NOTIFIED, HE ORDERED AN AMP OF D50, IT WAS GIVEN ALONG WITH BREAKFAST, PATIENT ATE MOST OF IT WITH MANY SUGAR PACKETS MIXED IN. 0916 -CBG 99 1204 -CBG 36, RECHECKED TO CONFIRM. DR SHANNON NOTIFIED, HE ORDERED ANOTHER AMP OF D50, IT WAS GIVEN ALONG WITH LUNCH. PATIENT WAS NOT ABLE TO EAT MUCH OF LUNCH. 1239 -CBG 116 WILL CONTINUE TO MONITOR.
--- NOTE | 2019-08-10 18:10 | NUR ---
SHIFT SUMMARY PATIENT IS ALERT, 0RIENTED, AND AMBULATES TO BATHROOM WITH 1 ASST/FWW, OR USES THE COMMODE INDEPENDENTLY. SEE BLOOD SUGAR NOTE FOR CBG DETAILS, DINNER CBG WAS 52, DR SHANNON NOTIFIED, HE ORDERED D5 AND 1/2 NS TO INFUSE AT 30 ML/HR. PAIN MEDS GIVEN PRN. PT C/O SORE/SCRATCHY THROAT, THROAT LOZENGES ORDERED AND GIVEN. BILIARY DRAIN ON R SIDE DRAINING COPIOUS AMOUNTS STILL, DR SHANNON NOTIFIED, HE STATED HE'S NOT VERY CONCERNED, WILL TELL DR APPIAH ABOUT IT TOMORROW. DRESSING CHANGED TWICE DURING SHIFT, ONCE AREA AROUND DRAIN CLEANED WITH CLEANSING SWAB. PATIENT WAS MADE A DNR TODAY, PURPLE BAND APPLIED. PT STILL HAVING WATERY JAMESON/BROWN STOOLS EVERY FEW HOURS.
--- NOTE | 2019-08-11 01:20 | NUR ---
PERFORMED DRESSING CHANGE TO BILIARY DRAIN TO THE RUQ. MODERATE AMOUNT OF BROWN DRAINIAGE COMING FROM INCISION SITE. ABD PAD AND GAUZE APPLIED TO AREA. COVERED WITH TEGADERM AND SECURED WITH TAPE. PT. TOLERATED WELL. WILL CONT TO MONITOR.
--- NOTE | 2019-08-11 05:07 | NUR ---
SHIFT SUMMARY- PT. A&O WITH BS OF 45 IN THE EVENING. JUICE GIVEN, BS UP TO 50. PT. ASYMPTOMATIC. NOTIFIED PROVIDER, RECEIVED ORDERS FOR D50, FLUIDS, AND Q2HR BS CHECKS. RECHECK OF BS WAS 102. NEXT BS CHECK DONE WITH BS OF 70, JUICE AND SNACKS GIVEN. FINAL BS FOR THE NIGHT AT 88. PT. C/O PAIN OF THE ABD, PAIN MED GIVEN PER EMAR, TOLERATING WELL. BILIARY DRAIN SITE CONTINUES TO LEAK MODERATE AMOUNT OF DRAINAGE. DRESSING CHANGE PERFORMED EARLIER DURING THE NIGHT. PT. DENIED ANY OTHER NEEDS T/O THE NIGHT. PT. IS INDEP IN ROOM, CALLS APPROPRIATELY. CALL LIGHT WITHIN REACH AND SIDE RAILS UP X2. WILL CONT TO MONITOR.
[2019-08-11 05:09] LABS: Hematocrit 29.9 % (37.0-53.0); Hemoglobin 10.1 g/dL (13.5-17.5); Mean Corpuscular HGB 34.2 pg (26.0-34.0); Mean Corpuscular HGB Conc 33.8 g/dL (31.5-36.5); Mean Corpuscular Volume 101 fL (80-100); Mean Platelet Volume 11.7 fL (9.1-12.4); NRBC ABSOLUTE 0.03 K/mm3 (0.00-0.02); NRBC Auto 0.4 /100 WBC (0.0-0.2); Platelet Count 300 K/mm3 (150-400); RDW Coefficient Variation 16.7 % (11.7-14.2); RDW Standard Deviation 61.9 fL (35.1-46.3); Red Blood Cell Count 2.95 M/mm3 (4.30-5.90); White Blood Cell Count 6.74 K/mm3 (4.00-11.30)
[2019-08-11 05:18] LABS: Albumin, Blood 1.4 g/dL (3.4-5.0); Anion Gap 9 mmol/L (6-16); Blood Urea Nitrogen 14 mg/dL (8-24); Bun/Creatinine Ratio 12.3 (12.0-20.0); CO2, Blood 18 mmol/L (21-32); Calcium, Blood 7.9 mg/dL (8.5-10.1); Chloride, Blood 106 mmol/L (98-108); Creatinine, Blood 1.14 mg/dL (0.60-1.20); Glomerular Filtration Rate >60 (60-); Glucose, Blood 94 mg/dL (70-99); Phosphorus, Blood 3.8 mg/dL (2.5-4.9); Potassium, Blood 3.2 mmol/L (3.5-5.5); Sodium, Blood 133 mmol/L (136-145)
[2019-08-11 05:39] LABS: BAND PERCENT MAN 11 % (0-8); BASOPHILS PERCENT MAN 0 % (0-2); EOSINOPHILS PERCENT MAN 0 % (0-6); LYMPHOCYTES ABSOLUTE MAN 0.13 K/mm3 (0.84-5.20); LYMPHOCYTES PERCENT MAN 2 % (21-46); MONOCYTES PERCENT MAN 9 % (4-13); NEUTROPHILS ABSOLUTE MAN 5.99 K/mm3 (1.96-9.15); SEG NEUTROPHILS PERCENT MAN 78 % (41-73); TOTAL CELLS COUNTED 100
--- NOTE | 2019-08-11 06:40 | NUR ---
PERFORMED DRESSING CHANGE TO RUQ. LEAKING LARGE AMOUNT OF DRAINAGE AROUND BILIARY DRAIN. COVERED AND REINFORCED WITH GAUZE, ABD PAD, AND TAPE. PT. TOLERATED WELL.
--- NOTE | 2019-08-11 09:35 | NUR ---
Physician notified LM on Dr. Ahn's phone RE patient and friend requesting to speak to him about the discharge plan (Home Health or ATC for IV abx).
[2019-08-11] MEDS ORDERED: ACET325 PO (14:52)
[2019-08-11] MEDS ORDERED: BENMENLOZ MT (14:53)
[2019-08-11] MEDS ORDERED: Ceftriaxone2 G1 IV (15:02)
[2019-08-11] MEDS ORDERED: CUBICIN RF500 MG IV (15:05)
[2019-08-11] MEDS ORDERED: POTCIT10 PO (15:06)
[2019-08-11] MEDS ORDERED: ALBU90OI INH (15:07)
--- NOTE | 2019-08-11 16:31 | NUR ---
DISCHARGE SUMMARY A/OX3. PT DC TO HOME c FAMILY VIA PERSONAL VEHICLE. [facility] TO CALL PT FOR F/U APPOINTMENT. PT WILL BE SEEING DR. BARRERA TOMORROW (08/12/2019) SO F/U APPOINTMENT NOT SCHEDULED. APPOINTMENT FOR ATC ON 08/12/2019 @ 0830 FOR ABX INFUSIONS. REVIEWED DISCHAGED PAPERWORK WITH PT AND FAMILY, OFFERED MOMENT TO ASK QUESTIONS. ESCORTED VIA WC BY RN. PERSONAL BELONGINGS SENT HOME.
--- NOTE | 2019-08-11 16:36 | NUR ---
PHYSICIAN NOTIFIED DR. DEAN NOTIFIED RE NEEDING ACTUAL ORDER FOR MARGARET AND ORDER FOR ATC TO ACCESS MEDIPORT.
== END 2019-08-11 17:03 | disposition home health service (06) | DRG 871 ==
LOC: ER 18:37 → MEDS 18:38
PROVIDERS: Family Medicine; Internal Medicine; Internal Medicine Gastroenterology; Internal Medicine Hematology & Oncology; ADMIT Internal Medicine
PROC: 30233N1 Transfusion of Nonautologous Red Blood Cells into Peripheral Vein, Percutaneous Approach (ICD-10-PCS; principal; 2019-08-07)
DX: A41.51 Sepsis due to Escherichia coli [E. coli] (principal); K83.1 Obstruction of bile duct; D61.810 Antineoplastic chemotherapy induced pancytopenia; E43 Unspecified severe protein-calorie malnutrition; C78.89 Secondary malignant neoplasm of other digestive organs; R64 Cachexia; E87.1 Hypo-osmolality and hyponatremia; A41.81 Sepsis due to Enterococcus; Z21 Asymptomatic human immunodeficiency virus [HIV] infection status; Z79.4 Long term (current) use of insulin; F17.210 Nicotine dependence, cigarettes, uncomplicated; E11.65 Type 2 diabetes mellitus with hyperglycemia; E78.5 Hyperlipidemia, unspecified; K21.9 Gastro-esophageal reflux disease without esophagitis
CPT/HCPCS: 0099U; 36415; 36430; 71045; 74177; 80053; 80069; 80202; 81001; 82550; 82947; 83605; 83735; 83880; 84145; 85025; 85027; 85610; 86301; 86850; 86900; 86901; 86923; 87040; 87077; 87086; 87186; 87493; 93306; 94760; 96361; 96365; 96366; 96372; 96374-59; 96375; 96375-59; 96376; 99285-25; A9270; G0378; J0696; J0878; J1447; J1650; J1956; J2185; J2405; J3010; J3370; J7030; J7040; J7042; J7120; J7799; P9016; P9046; Q9967

== ENCOUNTER 2019-08-12 00:01 | Day surgery (SDC) | payer MEDICARE, OTHER ==
[~2019-08-12 00:01] MED LIST changes: +ACET325 PO; +ALBU90OI INH; +BENMENLOZ MT; +CUBICIN RF500 MG IV; +Ceftriaxone2 G1 IV; +POTCIT10 PO
[2019-08-12 08:21] LABS: Hematocrit 29.4 % (37.0-53.0); Hemoglobin 10.2 g/dL (13.5-17.5); Mean Corpuscular HGB 33.6 pg (26.0-34.0); Mean Corpuscular HGB Conc 34.7 g/dL (31.5-36.5); Mean Corpuscular Volume 97 fL (80-100); Mean Platelet Volume 11.8 fL (9.1-12.4); NRBC ABSOLUTE 0.05 K/mm3 (0.00-0.02); NRBC Auto 0.6 /100 WBC (0.0-0.2); Platelet Count 299 K/mm3 (150-400); RDW Coefficient Variation 16.1 % (11.7-14.2); Red Blood Cell Count 3.04 M/mm3 (4.30-5.90); White Blood Cell Count 7.75 K/mm3 (4.00-11.30)
[2019-08-12 08:47] LABS: Alanine Aminotransfer (ALT/SGP 53 U/L (12-78); Albumin, Blood 1.4 g/dL (3.4-5.0); Albumin/Globulin Ratio 0.5 (0.8-1.8); Alk Phos 239 U/L (50-136); Anion Gap 9 mmol/L (6-16); Aspartate Aminotrans (AST/SGOT 50 U/L (12-37); BAND PERCENT MAN 7 % (0-8); BASOPHILS PERCENT MAN 0 % (0-2); Bilirubin, Total 4.2 mg/dL (0.1-1.0); Blood Urea Nitrogen 16 mg/dL (8-24); CO2, Blood 17 mmol/L (21-32); Calcium, Blood 8.3 mg/dL (8.5-10.1); Chloride, Blood 109 mmol/L (98-108); Creatinine, Blood 1.14 mg/dL (0.60-1.20); EOSINOPHILS PERCENT MAN 0 % (0-6); Globulin, Blood 3.1 g/dL (2.2-4.0); Glomerular Filtration Rate >60 (60-); Glucose, Blood 144 mg/dL (70-99); LYMPHOCYTES ABSOLUTE MAN 0.15 K/mm3 (0.84-5.20); LYMPHOCYTES PERCENT MAN 2 % (21-46); MONOCYTES ABSOLUTE MAN 0.77 K/mm3 (0.16-1.47); MONOCYTES PERCENT MAN 10 % (4-13); NEUTROPHILS ABSOLUTE MAN 6.82 K/mm3 (1.96-9.15); Potassium, Blood 2.8 mmol/L (3.5-5.5); SEG NEUTROPHILS PERCENT MAN 81 % (41-73); Sodium, Blood 135 mmol/L (136-145); TOTAL CELLS COUNTED 100; Total Protein, Blood 4.5 g/dL (6.4-8.2)
== END 2019-08-12 09:02 | disposition home or self-care (01) ==
LOC: ATC 00:01
PROVIDERS: Internal Medicine Hematology & Oncology
DX: C25.1 Malignant neoplasm of body of pancreas (principal); B96.20 Unspecified Escherichia coli [E. coli] as the cause of diseases classified elsewhere; Z79.899 Other long term (current) drug therapy; Z79.4 Long term (current) use of insulin; Z88.0 Allergy status to penicillin
CPT/HCPCS: 80053; 85025; 86301; 96365; 96367; J0696; J0878; J1642

== ENCOUNTER 2019-08-13 00:01 | Day surgery (SDC) | payer MEDICARE, OTHER ==
--- NOTE | 2019-08-13 12:07 | NUR ---
PATIENT FINISHED INFUSION AND CHECKED BLOOD SUGAR WHICH WAS 23. PATIENT WAS AWAKE AND ALERT AND EATTING AND DRINKING TO CORRECT HIS SUGAR. PATIENT WAS THEN ESCORTED TO THE ER BY NURSING SUPERVISER.
== END 2019-08-13 10:30 | disposition home or self-care (01) ==
LOC: ATC 00:01
DX: A41.9 Sepsis, unspecified organism (principal); Z79.2 Long term (current) use of antibiotics; Z79.899 Other long term (current) drug therapy
CPT/HCPCS: 96365; 96367; J0696; J0878; J1642

== ENCOUNTER 2019-08-13 10:31 | Inpatient (IN) | payer MEDICARE, OTHER ==
[~2019-08-13] VITALS: Ht 170.2 cm; Wt 64.0 kg
[2019-08-13 11:00] LABS: Calcium, Ionized (POC) 1.28 mmol/L (1.10-1.46); Chloride (POC) 105 mmol/L (98-108); Creatinine (POC) 1.3 mg/dL (0.8-1.3); Glucose (ISTAT POC) 247 mg/dL (70-99); Hemoglobin (POC) 12.9 g/dL (13.5-17.5); Potassium (POC) 3.9 mmol/L (3.5-5.5); Sodium (POC) 131 mmol/L (135-148); Total CO2 (POC) 18 mmol/L (21-32)
[2019-08-13 11:19] LABS: Hematocrit 33.5 % (37.0-53.0); Hemoglobin 11.6 g/dL (13.5-17.5); Mean Corpuscular HGB 33.8 pg (26.0-34.0); Mean Corpuscular HGB Conc 34.6 g/dL (31.5-36.5); Mean Corpuscular Volume 98 fL (80-100); Mean Platelet Volume 12.7 fL (9.1-12.4); NRBC ABSOLUTE 0.08 K/mm3 (0.00-0.02); NRBC Auto 0.7 /100 WBC (0.0-0.2); Platelet Count 324 K/mm3 (150-400); RDW Coefficient Variation 16.8 % (11.7-14.2); RDW Standard Deviation 59.6 fL (35.1-46.3); Red Blood Cell Count 3.43 M/mm3 (4.30-5.90); White Blood Cell Count 11.58 K/mm3 (4.00-11.30)
[2019-08-13 11:33] LABS: Magnesium, Blood 2.5 mg/dL (1.6-2.4)
[2019-08-13 11:36] LABS: Alanine Aminotransfer (ALT/SGP 62 U/L (12-78); Albumin, Blood 1.4 g/dL (3.4-5.0); Albumin/Globulin Ratio 0.4 (0.8-1.8); Alk Phos 270 U/L (50-136); Anion Gap 14 mmol/L (6-16); Aspartate Aminotrans (AST/SGOT 76 U/L (12-37); Bilirubin, Total 5.6 mg/dL (0.1-1.0); Blood Urea Nitrogen 21 mg/dL (8-24); CO2, Blood 13 mmol/L (21-32); Calcium, Blood 8.1 mg/dL (8.5-10.1); Chloride, Blood 106 mmol/L (98-108); Globulin, Blood 3.8 g/dL (2.2-4.0); Glomerular Filtration Rate >60 (60-); Glucose, Blood 233 mg/dL (70-99); Potassium, Blood 3.8 mmol/L (3.5-5.5); Sodium, Blood 133 mmol/L (136-145); Total Protein, Blood 5.2 g/dL (6.4-8.2)
[2019-08-13 11:53] LABS: BAND PERCENT MAN 13 % (0-8); BASOPHILS PERCENT MAN 0 % (0-2); EOSINOPHILS PERCENT MAN 0 % (0-6); LYMPHOCYTES ABSOLUTE MAN 0.34 K/mm3 (0.84-5.20); LYMPHOCYTES PERCENT MAN 3 % (21-46); METAMYELOCYTE ABSOLUTE MAN 0.23 K/mm3 (0.00-0.00); METAMYELOCYTE PERCENT MAN 2 % (0-0); MONOCYTES ABSOLUTE MAN 0.92 K/mm3 (0.16-1.47); MONOCYTES PERCENT MAN 8 % (4-13); NEUTROPHILS ABSOLUTE MAN 10.07 K/mm3 (1.96-9.15); SEG NEUTROPHILS PERCENT MAN 74 % (41-73); TOTAL CELLS COUNTED 100
--- NOTE | 2019-08-13 17:50 | NUR ---
I SEEN DR BARRERA IN THE HALLWAY PRIOR TO PT ARRIVING TO FLOOR WHEN PT WAS IN SHEET ROCK INSTALLER WITH DR APPIAH. NOTIFIED DR BARRERA OF CONSULT. PER DR BARRERA HE SEEN THIS PT IN THE OFFICE YESTERDAY AND REPORTS HE SPOKE TO THE PT AT THAT POINT ABOUT HOSPICE. PER DR BARRERA HE IS OUT OF TOWN TOMORROW, I DID INFORM HIM THAT HE WAS DOWN IN THE SHEET ROCK INSTALLER.
--- NOTE | 2019-08-13 18:04 | NUR ---
PT ARRIVED TO UNIT VIA BED FROM [facility]. PT VERY LETHARGIC AND UNABLE TO COMMUNICATE AT THIS TIME, WAS UNABLE TO OBTAIN A COMPLETE ASSESSMENT DUE TO THIS. PT HAS A THORACIC VENT PLACE, NOTED DRESSING APPEARED INSECURE AND BLOOD WAS PRESENT AROUND INSERTION SITE, CATH HAS BACKED OUT OF SKIN APPROX. 1/[address] CALL LIGHT IN PLACE, BED ALARM ON.
--- NOTE | 2019-08-13 18:22 | NUR ---
CALLED ORIANA, HOSPITILIST KNOT CUTTER, AND INFORMED OF SITUATION. REPORTS SHE WILL COME LOOK AT THORACIC VENT.
--- NOTE | 2019-08-13 18:48 | NUR ---
DR. SUNSHINE AND ORIANA FIRE TENDER LOOKED AT THORACIC VENT. REINSERTED AND SECURED WITH TAPE.
--- NOTE | 2019-08-13 19:53 | NUR ---
Discussed with Tita and assessed chest tube. Pt appears comfortable, no s/s of distress. Tita has concerns about the care of the chest tube and does not appear to be completely taped down. She is following up with staff for this concern. Pt has comfort care orders and has appropriate medications ordered. Will follow up with pt tomorrow.
--- NOTE | 2019-08-14 06:30 | NUR ---
PT with advanced pancreatic cancer andmultiple family members who or are dying with same. Sister currently hospitalized with terminal panceratic cancer and she has been providing support for PT who has been living with her. PT has chesttube and bile drain which are draining. Oxygen at 2 l nc to maintain comfort. Medicated x 2 with roxinol 20 mg& x 1 with roxinol 10 mg sl for co pain with helpful effect. Has fentanyl patch in place.
--- NOTE | 2019-08-14 09:30 | NUR ---
Clinical Visit: Pt is on comfort care. Spoke with nurse and Dr. Ahn. Sister is at bedside. Discussed at length with sister, Ary. She is fairly anxious about pt's comfort and his plan upon discharge. Reviewed options. She has promised him that she wouldn't put him in a long-term or other placement. She is frail and sick also and cannot take care of him at home due to her own illness and weakness. Many family dynamics. There are three other brothers. Two have been in contact with the pt very recently and one is estranged from the entire family. Pt lives in [place] and came to [place] with his sister. He has an apartment there. Pt has been getting roxanol for pain. Will follow up as able. Reviewed plan of care with sister.
--- NOTE | 2019-08-14 09:48 | NUR ---
AM ASSESSMENT- PT AWAKES TO VERBAL STIMULUS, PT DENIES ANY PAIN. PT A/O TO PERSON AND PLACE. PT SISTER CALLED IN TO ROOM AND SPOKE WITH PT. PT WITH THORACIC VENT NOTED TO CHEST WALL, SECURED WITH TAPE. MESIPORT TO RCW. ABD MOD DISTENDED. BILIARY DRAIN NOTED TO RIGHT SIDE DRAINING BROWN/YELLOW DRAINAGE. 3+ BILAT FEET NOTED. LS CLEAR, ON 2L N/C. HRR. PT DENIED ANY REQUESTS AT THIS TIME, REFUSED BREAKFAST TRAY BUT DID TAKE SOME MEDICATIONS AND SIPS OF WATER. BED ALARM ON, CALL LIGHT IN PLACE WILL CONT TO MONITOR.
--- NOTE | 2019-08-14 10:57 | NUR ---
PT SISTER AND BROTHER IN [place] AT BEDSIDE. DR DEAN AND PALLIATIVE CARE IN TO TALK WITH THEM.
--- NOTE | 2019-08-14 16:34 | NUR ---
Spiritual Care initial note: Mr. Sloan was non-responsive when I visited. He appears to be nearing end-of-life. Breaths are even. Skin color dusky. I sat at bedside providing presence and comfort through touch. Prayed for a peaceful transition. [employer] will remain available.
--- NOTE | 2019-08-14 18:10 | NUR ---
SHIFT SUMMARY- PT COMFORT CARE PT. PT AWAKES TO VERBAL STIMULI, A/O TO PERSON, PLACE AND FAMILY. FAMILY UP TO SEE PT T/O THE DAY. PT WITH THORA VENT TO CHEST, LS CLEAR, REMAINS ON 2L N/C. RESP HAS DECREASED AND IRREG AT THE DAY HAS GONE ON. PT RESTLESS AT TIMES, PRN ROXANOL GIVEN T/O THE DAY, PRN ATIVAN ORDERED BUT PT APPEARED COMFORTABLE AND DID NOT END UP REQUIRING. PT HAS BECOME MORE UNRESONSIVE THIS EVENING. UNABLE TO TAKE ORAL AT THIS TIME. MEDIPORT TO W TKO. BILIARY DRAIN TO RIGHT SIDE. 2-3+ EDEMA TO BILAT FEET. NO URINE OUTPUT THIS SHIFT. SKIN JAUNDICED. BEDBATH COMPLETED THIS SHIFT. WILL CONT TO MONITOR. PT APPEARS COMFORTABLE AT THIS TIME.
--- NOTE | 2019-08-14 19:40 | NUR ---
PATIENT SLEEPING COMFORTABLY, NO SIGNS OF DISTRESS, COUGHING OCCATIONALLY, IV INFUSING WITH NO PROBLEMS
--- NOTE | 2019-08-14 22:35 | NUR ---
PATIENT STARTED TO GET RESTLESS, AND MOANING, COUGHING AND MAKING SOUNDS OF GROANING. GAVE ROXINAL AND REPOSITIONED THE PATIENT.
--- NOTE | 2019-08-15 | NUR ---
PATIENT SLEEPING, NO DISTRESS NOTED
--- NOTE | 2019-08-15 02:00 | NUR ---
PATIENT COUGHING OCCATIONALLY, REPOSITIONED HIM UP IN BED, CHECKED HIS ATTENDS WHICH WAS DRY. BILARY BAG HAS LITTLE DRAINAGE IN IT. SWABBED HIS MOUTH WITH LEMON SWABS. FEET ELEVATED ON PILLOW. THEROVENT CHECKED DOES NOT NEED TO BE DRAINED.
--- NOTE | 2019-08-15 04:00 | NUR ---
LETTY IS STILL SLEEPING, OFF AND ON COUGHING OR MOANS. WHEN GOING INTO THE ROOM TO CHECK HIM HE IS LAYING PEACEFULLY. LAYED HIM BACK IN BED. HE MOVED A LITTLE, BILARY DRAIN STILL DOES NOT NEED TO BE DRAINED. THEROVENT GOOD. MOIST MOUTH WITH SWABS GOT WHITE FLAKES FROM HIS MOUTH. BUT UNABLE TO GET UNDER HIS TONGUE STILL. HE WONT LET THE SWAB GET UNDERNEATH IT.
--- NOTE | 2019-08-15 07:43 | NUR ---
SHIFT SUMMARY; LETTY IS A 59 YEAR OLD MALE ON COMFORT CARE. HE HAS RESTED PEACEFULLY THROUGHOUT THE NIGHT EXCEPT WITH OCCATIONAL MOANS AND GROINS. HE WAS GIVEN ROXINAL X2 THIS SHIFT WHEN HE WOULD GET RESTLESS. HE WAS REPOSITIONED WITH CHECKS. MOUTH WAS MOISTENED WHEN HE WOULD ALLOW IT. BILARY BAG WAS CHECKED. ATTENDS REMAINED DRY UP TO THIS MORNING WHEN IT WAS NOTICED HE WAS SOAKED FROM HEAD TO TOE. HE VOIDED MORE THEN ONCE IT APPEARS. BED WAS COMPLETLY SOAKED OF URINE. WITH ASSISTANCE OF ONCOMING NURSE GAVE HIM A COMPLETE WIPE DOWN, BED CHANGE. MOUTH CARE. ATTENDS CHANGE. REPOSITION, AND CARE WAS TRANSFERRED TO DAY SHIFT RN.
--- NOTE | 2019-08-15 11:11 | NUR ---
COMFORT CARE NOTE- PT CHANGED AND REPOSITIONED TO LEFT SIDE LYING. RAISED THE HOB TO HELP REDUCE RATTLE CAUSE BY SECRETIONS, SCOPOLOMINE PATCH IN PLACE ATROPIENE DROPS INEFFECTIVE.
--- NOTE | 2019-08-15 12:30 | NUR ---
PT REPOSITIONED TO HIS BACK WITH HIPS FLOATED, GROANED WHEN REPOSITIONED BUT THEN RELAXED, NO ADDITIONAL S&S OF PAIN OR DISTRESS. HOB ELEVATED FOR EASE OF BREATHING, COVERED WITH A SHEET ONLY D/T INCREASED BODY TEMP AT THIS TIME, WILL CTM.
--- NOTE | 2019-08-15 15:14 | NUR ---
Clinical Visit - Comfort Care: Pt seen many times by palliative care today. Pt's case is complicated by his sister's own illness and her hospitalization. Per nurse, Nany, pt was symptomatic at begining of her shift. After medication, pt appears to be calmer, resting comfortably. Nany placed a scopolamine patch this morning for secretions. Pt is imminently close to . Counseling with family is extensive. Again, pt's siser, Ary, is ill with same disease as pt. She is almost frantic in her tasks. She has poor memory recall and is having some confusion. Her anxiety is high and she is almost out of control. She is quite obsessive. Her is present and a calm presence for her. There is another family member that arrived this afternoon, which has been helpful for the family. For now, pt appears comfortable. Will follow up with nurse to see that pt's and family's needs are being met. No other concers. Pt expected to pass away in the hospital.
--- NOTE | 2019-08-15 15:30 | NUR ---
COMFORT CARE NOTE- PT GROANING LOUDLY WHEN REPOSITIONED, MEDICATED WITH ROXINOL. PT WARM TO THE TOUCH.
--- NOTE | 2019-08-15 17:11 | NUR ---
PT SISTER HAS RETURNED TO HER ROOM FOR A WHILE. [id number] HEADED HOME FOR THE NIGHT TO PREPARE FOR ALL THE FAMILY COMING IN. NIECE IS IN THE ROOM AT THIS TIME WITH HER SPOUSE. PT APPEARS TO BE RESTING COMFORTABLY AT THIS TIME.
--- NOTE | 2019-08-15 19:29 | NUR ---
SHIFT SUMMARY- PT CONTINUES TO BE NON-VERBAL. NIECE IS AT THE BEDSIDE AT THIS TIME AND WILL SATY T/O THE NIGHT. PER REPORT PT SISTER HAS BEEN TRANSFERED TO MEDICAL FLOOR AND SHE HAS REQUESTED THE ROOM NEXT TO HIS. PT IS CURRENTLY RESTING COMFORTABLY, WHEN SISTER IS IN THE ROOM SHE SHOULD BE MONITORED BY STAFF OR OTHER FAMILY TODAY SHE WAS TRYING TO PUT POTATO CHIPS INTO THE PT OPEN MOUTH. PT HAS NO ABILITY TO SWALLOW AND IS NOT SAFE TO FEED AT THIS TIME, ALSO HE INDICATED HE DID NOT WANT FOOD, SHE WAS ALSO FOUND PLANNING TO GIVE THE PT A BANNANA, SHE ACTED LIKE SHE WAS JOKING BUT SHE APPEARED VERY SERIOUS. SHE ASKED AT ONE POINT "SO, BASICALLY HE IS STARVING HIMSELF TO ?" PALLIATIVE CARE ASSISTED THE PT SISTER BACK TO HER ROOM.
--- NOTE | 2019-08-15 19:33 | NUR ---
ROUNDED ON PATIENT. PATIENT LAYING QUIETLY. O2 IN PLACE. FAMILY AT BEDSIDE. DISCUSSED TURN SCHEDULE, AND USE OF CALL BUTTON WITH FAMILY. BED LOW AND LOCKED, BUTTON WITHIN REACH. RECLINER BROUGHT IN FOR RHETT TO SATY THE NIGHT. SISTER WHO IS ALSO A PATIENT IS BEING MOVED INTO THE ADJACENT ROOM.
--- NOTE | 2019-08-16 07:00 | NUR ---
PT PASSED AT 0530 PER REPORT, FAMILY STILL IN THE ROOM AT SHIFT CHANGE, WELL PT SISTER WHO IS ADMITTED IN [facility]. PORVIDED COFFEE, HOT WATER AND ICE WATER FOR THE FAMILY. OFFERED PALLIATIVE CARE, AND PASTORAL CARE, FAMILY DECLINED AT THIS TIME. IV MACY'Maulik, SPOKE TO FIELD INSTALLER AND NURSING SHUTTLELESS LOOM WEAVER, PT FAMILY HAS CHOSEN A MORTUARY IN [place]. THE LOCAL MORTUARY CHOSEN IS [facility]. FAMILY IS AWARE THEY NEED TO INFORM STAFF WHEN THEY ARE READY FOR THE BODY TO BE PICKED UP.
--- NOTE | 2019-08-16 08:26 | NUR ---
SPOKE WITH SUMAYA AT [facility]. REPORTED THAT FAMILY REQUESTS THAT BODY IS ULTIMATELY TRANSFERRED TO [facility]. [facility] POLANCO AWARE (SPOKE WITH STEVEN @[phone]).
== END 2019-08-16 05:30 | DRG 981 ==
LOC: ER 10:31 → MEDS 15:53
PROVIDERS: Emergency Medicine; ADMIT Family Medicine
PROC: 0B9N30Z Drainage of Right Pleura with Drainage Device, Percutaneous Approach (ICD-10-PCS; principal; 2019-08-13)
PROC: 0FPB3DZ Removal of Intraluminal Device from Hepatobiliary Duct, Percutaneous Approach (ICD-10-PCS; 2019-08-13)
PROC: 0F793DZ Dilation of Common Bile Duct with Intraluminal Device, Percutaneous Approach (ICD-10-PCS; 2019-08-13)
PROC: 0F9930Z Drainage of Common Bile Duct with Drainage Device, Percutaneous Approach (ICD-10-PCS; 2019-08-13)
DX: J93.9 Pneumothorax, unspecified (principal); A41.50 Gram-negative sepsis, unspecified; E43 Unspecified severe protein-calorie malnutrition; J18.1 Lobar pneumonia, unspecified organism; K83.1 Obstruction of bile duct; D61.810 Antineoplastic chemotherapy induced pancytopenia; C25.9 Malignant neoplasm of pancreas, unspecified; C78.7 Secondary malignant neoplasm of liver and intrahepatic bile duct; T85.520A Displacement of bile duct prosthesis, initial encounter; B20 Human immunodeficiency virus [HIV] disease; Z16.21 Resistance to vancomycin; R64 Cachexia; Z68.1 Body mass index [BMI] 19.9 or less, adult; Z51.5 Encounter for palliative care; R09.02 Hypoxemia; Z92.21 Personal history of antineoplastic chemotherapy; E11.9 Type 2 diabetes mellitus without complications; B96.20 Unspecified Escherichia coli [E. coli] as the cause of diseases classified elsewhere; B95.2 Enterococcus as the cause of diseases classified elsewhere; Z79.4 Long term (current) use of insulin; Z66 Do not resuscitate; F17.210 Nicotine dependence, cigarettes, uncomplicated
CPT/HCPCS: 32551; 36415; 47534; 47538; 71045; 71046; 80047; 80053; 82947; 83735; 85014; 85025; 96374-59; 99152; 99153; 99285-25; C1729; C1769; C1876; C1887; J0690; J0696; J0878; J1642; J1644; J1815; J2250; J2405; J3010; J7030; J7040; J7050; Q9967